=== PATIENT | male | born 1955 | race Caucasian/White ===

== ENCOUNTER → 2021-11-21 | Day surgery (SDC) | payer BC ==
[~2021-11-21] MED LIST: Rabies Vaccine Human 2.5 UNITS VIAL ONE
== END ==
LOC: CSHER/OP 06:52
PROVIDERS: ATTEND Emergency Medicine
DX: Z23 Encounter for immunization (principal)
CPT/HCPCS: 90471; 90675

== ENCOUNTER → 2021-11-25 | Day surgery (SDC) | payer BC | LOC: CSHER/OP 05:53 | DX: Z23 Encounter for immunization (principal) | CPT/HCPCS: 90471 ==

== ENCOUNTER → 2021-12-02 | Day surgery (SDC) | payer BC | LOC: CSHER/OP 05:38 | PROVIDERS: ATTEND Emergency Medicine | DX: Z23 Encounter for immunization (principal) | CPT/HCPCS: 90471; 90675 ==